=== PATIENT | male | born 1960 | race Caucasian/White ===

== ENCOUNTER 2019-06-10 22:23 | Emergency (ER) | payer SELFPAY ==
[~2019-06-10] VITALS: Ht 175.3 cm; Wt 87.0 kg
[2019-06-10 22:49] VITALS: BP 122/81
== END 2019-06-11 01:00 | disposition left against medical advice (07) ==
LOC: ER 22:34
DX: Z53.21 Procedure and treatment not carried out due to patient leaving prior to being seen by health care provider (principal)
CPT/HCPCS: 93005

== ENCOUNTER 2020-06-18 23:49 | Emergency (ER) | payer OTHER ==
[~2020-06-18] VITALS: Ht 175.3 cm; Wt 87.0 kg
[2020-06-18 23:54] VITALS: BP 164/96
== END 2020-06-19 | disposition left against medical advice (07) ==
LOC: ER 23:49
DX: I10 Essential (primary) hypertension (principal); Z53.21 Procedure and treatment not carried out due to patient leaving prior to being seen by health care provider